=== PATIENT | female | born 1970 | race Caucasian/White ===

== ENCOUNTER 2016-07-23 22:38 | Observation (INO) | payer MEDICAID, OTHER ==
[~2016-07-23] VITALS: Ht 157.5 cm; Wt 105.0 kg
[2016-07-23 22:49] VITALS: BP 133/80; PULSE 79; RESP 18; TEMP 98.1; O2SAT 96
--- NOTE | 2016-07-23 23:20 | PD ---
HPI Chief Complaint: Chest Pain Time Seen by Provider: 23:07 Travel History International Travel<30 days: No Contact w/Intl Traveler<30days: No Traveled to known affect area: No History of Present Illness HPI This is a 45-year-old female who presents to the emergency department with 1 day of chest discomfort described as in the center of her chest, radiating to the back, moderate severity, worse with exertion, improved with rest. She says that over the past week she's had some increasing shortness of breath particularly with exertion and she's noticed that her legs are more swollen than normal. She is otherwise quite healthy. She used to be on hydrochlorothiazide for blood pressure but her blood pressure control improved so she was taken off of it. She's never smoked. She says her father had a heart attack in his early 40s or late 50s. She denies any recent long trips. PFSH Past Medical History Medical History: Denies Significant Hx Tetanus Vaccination: Unknown Influenza Vaccination: No ?: Not Past Surgical History Section: Yes Eye Surgery: Yes (left eye) Gynecologic Surgery: Yes (oophoretomy x1) Hysterectomy: Yes Social History Alcohol Use: No Tobacco Use: No Substance Use: No Allergies-Medications (Allergen,Severity, Reaction): Coded Allergies: No Known Allergies (Unverified , 07/23/16) Reported Meds & Prescriptions Reported Meds & Active Scripts Active No Active Prescriptions or Reported Medications Review of Systems Except as stated in HPI: all other systems reviewed are Neg Physical Exam Narrative GENERAL:Well appearing, no acute distress SKIN: Several abrasions and an open blister on the right dorsal aspect of the foot with some surrounding warmth and erythema. HEAD: Atraumatic. Normocephalic. EYES: Pupils equal and round. No injection or drainage. ENT: Moist mucous membranes NECK: Trachea midline. CARDIOVASCULAR: Regular rate and rhythm. No murmur appreciated. Nonpitting edema of the bilateral lower extremities right greater than left RESPIRATORY: Clear to auscultation. Breath sounds equal bilaterally. GASTROINTESTINAL: Abdomen soft, non-tender, nondistended. MUSCULOSKELETAL: No obvious deformities. NEUROLOGICAL: Awake and alert. No obvious cranial nerve deficits. Moving all extremities. PSYCHIATRIC: Appropriate mood and affect; insight and judgment normal. Data Data Last Documented VS Vital Signs Date Time Temp Pulse Resp B/P Pulse Ox O2 Delivery O2 Flow Rate FiO2 07/23/16 23:31 81 16 133/60 98 Room Air 07/23/16 22:49 98.1 Orders Electrocardiogram (07/23/16 23:16) B-Type Natriuretic Peptide (07/23/16 23:16) Complete Blood Count With Diff (07/23/16 23:16) Comprehensive Metabolic Panel (07/23/16 23:16) Magnesium (Mg) (07/23/16 23:16) Prothrombin Time / Inr (Pt) (07/23/16 23:16) Act Partial Throm Time (Ptt) (07/23/16 23:16) Troponin I (07/23/16 23:16) Chest, Single Ap (07/23/16 23:16) Ecg Monitoring (07/23/16 23:16) Bilateral Bp Monitoring (07/23/16 23:16) Iv Access Insert/Monitor (07/23/16 23:16) Oximetry (07/23/16 23:16) Oxygen Administration (07/23/16 23:16) Aspirin Chew (Aspirin Chew) (07/23/16 23:30) Sodium Chloride 0.9% Flush (Ns Flush) (07/23/16 23:30) Us Leg Venous Doppler (07/23/16 ) Cephalexin (Keflex) (07/24/16 00:45) Admit Order (Ed Use Only) (07/24/16 00:34) Labs Laboratory Tests Test 07/23/16 23:22 White Blood Count 12.3 TH/MM3 Red Blood Count 3.94 MIL/MM3 Hemoglobin 11.7 GM/DL Hematocrit 36.3 % Mean Corpuscular Volume 92.2 FL Mean Corpuscular Hemoglobin 29.6 PG Mean Corpuscular Hemoglobin 32.1 % Concent Red Cell Distribution Width 13.3 % Platelet Count 272 TH/MM3 Mean Platelet Volume 8.9 FL Neutrophils (%) (Auto) 63.3 % Lymphocytes (%) (Auto) 23.7 % Monocytes (%) (Auto) 9.5 % Eosinophils (%) (Auto) 2.9 % Basophils (%) (Auto) 0.6 % Neutrophils # (Auto) 7.8 TH/MM3 Lymphocytes # (Auto) 2.9 TH/MM3 Monocytes # (Auto) 1.2 TH/MM3 Eosinophils # (Auto) 0.4 TH/MM3 Basophils # (Auto) 0.1 TH/MM3 CBC Comment DIFF FINAL Differential Comment Prothrombin Time 10.7 SEC Prothromb Time International 1.0 RATIO Ratio Activated Partial 26.6 SEC Thromboplast Time Sodium Level 142 MEQ/L Potassium Level 3.6 MEQ/L Chloride Level 108 MEQ/L Carbon Dioxide Level 24.9 MEQ/L Anion Gap 9 MEQ/L Blood Urea Nitrogen 24 MG/DL Creatinine 0.99 MG/DL Estimat Glomerular Filtration 60 ML/MIN Rate Random Glucose 83 MG/DL Calcium Level 8.9 MG/DL Magnesium Level 2.3 MG/DL Total Bilirubin 0.4 MG/DL Aspartate Amino Transf 27 U/L (AST/SGOT) Alanine Aminotransferase 28 U/L (ALT/SGPT) Alkaline Phosphatase 30 U/L Troponin I LESS THAN 0.02 NG/ML B-Type Natriuretic Peptide 3 PG/ML Total Protein 6.7 GM/DL Albumin 3.8 GM/DL [facility] Medical Decision Making Medical Screen Exam Complete: Yes Emergency Medical Condition: Yes Interpretation(s) EKG: Normal sinus rhythm with no ST changes Mild leukocytosis Electrolytes are reassuring Troponin is normal BNP is 3 Ultrasound right lower extremity: No DVT Differential Diagnosis Acute coronary syndrome, congestive heart failure, pulmonary embolism, cellulitis, DVT Narrative Course This is a 45-year-old female who presents to the emergency department with 1 week of shortness of breath on exertion and sternal chest pain that started today. She does have a family history of heart disease and a history of hypertension in the past. She was placed on a monitor and an IV was established. EKG was nonischemic. Labs are obtained which are reassuring including a normal BNP. An ultrasound of her right lower extremity was obtained given she has some increasing swelling. She has some breaks in the skin in the right lower extremity and appears to have a superficial cellulitis which I think is causing some of her swelling. She was started on Keflex. Ultrasound was negative for DVT. Given the patient's family history and history of hypertension and think it's reasonable to obtain serial cardiac enzymes on the patient and have her see cardiology in the morning for possible risk stratification. Diagnosis Primary Impression: Chest pain Qualified Code: R07.9 - Chest pain, unspecified type Admitting Information Admitting Physician Requests: Observation Scripts No Active Prescriptions or Reported Meds Ana Maria Yost MD Jul 23, 2016 23:20
[2016-07-23 23:29] VITALS: BP_SYST 128; BP_SYST 133; BP_DIAS 62; BP_DIAS 67; PULSE 76; PULSE 84; RESP 16; O2SAT 98
[2016-07-23] MEDS ORDERED: ASPIRIN 81 MG CHEW TAB PO ONE (23:30)
[2016-07-23] MEDS ORDERED: SODIUM CHLORIDE 0.9% FLUSH 10 ML FLUSH IVF PRN (23:30)
[2016-07-23 23:31] VITALS: BP 133/60; PULSE 81; RESP 16; O2SAT 98
[2016-07-23 23:41] LABS: AUTOMATED NEUTROPHIL # 7.8 TH/MM3 (1.8-7.7); BASOPHIL # 0.1 TH/MM3 (0-0.2); BASOPHIL % 0.6 % (0.0-2.0); EOSINOPHIL # 0.4 TH/MM3 (0-0.4); EOSINOPHIL % 2.9 % (0.0-4.0); HEMATOCRIT 36.3 % (35.0-46.0); HEMO FLAGS DIFF FINAL; LYMPH % 23.7 % (9.0-44.0); LYMPHOCYTE # 2.9 TH/MM3 (1.0-4.8); MEAN CELL VOLUME 92.2 FL (80.0-100.0); MEAN CORPUSCULAR HEMOGLOBIN 29.6 PG (27.0-34.0); MEAN CORPUSCULAR HGB CONC 32.1 % (32.0-36.0); MONO % 9.5 % (0.0-8.0); NEUT % 63.3 % (16.0-70.0); PLATELET COUNT 272 TH/MM3 (150-450); RED BLOOD COUNT 3.94 MIL/MM3 (4.00-5.30); RED CELL DISTRIBUTION WIDTH 13.3 % (11.6-17.2); WHITE BLOOD COUNT 12.3 TH/MM3 (4.0-11.0)
[2016-07-24] VITALS (7 sets, daily range): BP systolic 113–122; BP diastolic 58–68; PULSE 55–74; RESP 20; TEMP 95.4–97.7; O2SAT 93–100
[2016-07-24 00:06] LABS: ANION GAP 9 MEQ/L (5-15); AST (GOT) 27 U/L (15-37); BICARBONATE 24.9 MEQ/L (21.0-32.0); BLOOD UREA NITROGEN 24 MG/DL (7-18); CHLORIDE 108 MEQ/L (98-107); GLOMERULAR FILTRATION RATE 60 ML/MIN (>89); MAGNESIUM 2.3 MG/DL (1.5-2.5); POTASSIUM 3.6 MEQ/L (3.5-5.1); SODIUM (NA) 142 MEQ/L (136-145)
[2016-07-24 00:08] LABS: APTT (PATIENT) 26.6 SEC (24.3-30.1); PROTHROMBIN TIME - PATIENT 10.7 SEC (9.8-11.6)
--- NOTE | 2016-07-24 00:09 | RADRPT ---
EXAM DATE/TIME: 07/23/2016 23:30 [facility] COMPARISON: No previous studies available for comparison. INDICATIONS : Shortness of breath. MEDICAL HISTORY : None. SURGICAL HISTORY : None. ENCOUNTER: Initial ACUITY: 1 day PAIN SCORE: 0/10 LOCATION: Bilateral chest FINDINGS: The lungs are clear without infiltrate, nodule, or mass. There is no appreciable pleural effusion fo r technique. Heart and mediastinum are unremarkable. CONCLUSION: No acute cardiopulmonary disease. Yolanda Myers MD on July 24, 2016 at 0:07 Board Certified Radiologist. This report was verified electronically.
[2016-07-24 00:11] LABS: ALKALINE PHOSPHATASE 30 U/L (45-117); ALT (GPT) 28 U/L (10-53); TOTAL BILIRUBIN ADULT 0.4 MG/DL (0.2-1.0)
--- NOTE | 2016-07-24 00:25 | RADRPT ---
EXAM DATE/TIME: 07/23/2016 23:58 [facility] COMPARISON: No previous studies available for comparison. INDICATIONS : Right leg swelling. MEDICAL HISTORY : . SURGICAL HISTORY : Hysterectomy. section. Unilateral oophorectomy. Left eye surgery. ENCOUNTER: Initial ACUITY: 1 day PAIN SCORE: 0/10 LOCATION: Right leg. TECHNIQUE: Venous ultrasound of the leg was performed from the inguinal ligament to the proximal calf. Real-buzz e, color Doppler and spectral tracing, compression and augmentation techniques were used. FINDINGS: There is normal compressibility of the deep venous system from the inguinal region to the proximal ca lf. No echogenic clot is seen in the lumen of the common femoral, femoral, popliteal, and posterior tibial veins. There is a normal response of the venous system to proximal and distal augmentation an d respiration. There is diffuse edema in the patient's lower extremity. CONCLUSION: No DVT. Yolanda Myers MD on July 24, 2016 at 0:22 Board Certified Radiologist. This report was verified electronically.
[2016-07-24] MEDS ORDERED: CEPHALEXIN MONOHYDRATE 500 MG CAP PO ONE (00:45)
[2016-07-24] MEDS ORDERED: ASPIRIN 325 MG TAB PO SCH (09:00)
[2016-07-24] MEDS ORDERED: ONDANSETRON HCL 4 MG/2 ML VIAL IV PRN (09:00)
[2016-07-24] MEDS ORDERED: ACETAMINOPHEN 500 MG CPLT PO PRN (09:00)
[2016-07-24] MEDS ORDERED: SODIUM CHLORIDE 0.9% FLUSH 10 ML FLUSH IV FLUSH SCH (09:00)
[2016-07-24] MEDS ORDERED: NITROGLYCERIN 0.4 MG SL 25 TABS/BTL SL PRN (09:00)
--- NOTE | 2016-07-24 09:20 | HHI.HP ---
HPI Primary Care Physician No Primary Care Physician Chief Complaint Chest tightness History of Present Illness 45-year-old female presents to the emergency room for further evaluation of chest pain. Onset of chest pain occurred last evening approximately 10:30 PM. She is from out of town and was walking to her hotel when she developed substernal gradual chest tightness and heaviness. Radiation to her back. Severity 5/10. Duration lasted approximately 8 hours. Taking a deep breath makes pain worse. Movements or palpation to area does not make pain better or worse. No known precipitating factors or relieving factors. Endorses situational stress. Associated symptoms included dizziness, shortness of breath , nausea, diaphoresis, and she noticed some wheezing. No recent illness. Endorses increase bilateral lower leg edema for the past week and 6 episodes of substernal chest discomfort over the past week. Chest discomfort episodes last minutes, is nonexertional but similar to the chest discomfort that brought her to the emergency room last evening. She has never had formal cardiac workup. Review of Systems General: No fatigue,weakness, fever, chills, recent illness, or change in appetite. HEENT: No GONZALEZ, no vision changes, no nasal congestion or drainage, no dysphasia CV: As stated above. No current chest pain or pressure. No palpitations, intermittent leg pain, or dizziness RESP: Wheezing with mild shortness of breath yesterday during chest pain episode , no current SOB or wheezing. No recent URI or coughing. GI: No nausea, vomiting, bowel changes, diarrhea, constipation, pain, distention. No unintentional weight gain or weight loss. : No dysuria, urgency, frequency, hematuria. Concentrated urine over the past week, states she is drinking plenty of fluids. EXT: Increase bilateral lower leg edema x1 week, no paraesthesias MS: No discomfort or change in ROM NEURO: No change in memory, dizziness, difficulty with balance, LOC, motor/ sensory deficits PSYCH: No anxiety or depression. Situational stress. SKIN: Multiple "bug bites that itch." States her lower leg edema started shortly after insect bites. Concerning lesion on right anterior foot. States area "started out as a bug bite and I scratched area alot and now it is a scab. " No rashes. Past Family Social History Allergies: Coded Allergies: No Known Allergies (Unverified , 07/23/16) Past Medical History Hypertensionprimary care physician stopped BP for "years ago as my blood pressure was controlled." Past Surgical History Hysterectomy, C-sections, 2 left eye surgeries Reported Medications Reported Meds & Active Scripts Active No Active Prescriptions or Reported Medications No supplements, vitamins, or herbals. Active Ordered Medications Current Medications Medications (Trade) Dose Ordered Sig/Diamond Route Start Time Stop Time Status Last Admin (Tylenol) 500 mg Q4H PRN PO 07/24/16 09:00 (Zofran Inj) 4 mg Q6H PRN IV 07/24/16 09:00 (Nitrostat Sl) 0.4 mg Q5M PRN SL 07/24/16 09:00 (Aspirin) 325 mg DAILY PO 07/24/16 09:00 Family History Father cardiac stent placed in his late 40s. Mother and siblings hypertension. Social History Single, visiting from out of town, plans to move to [facility]. Quit smoking 2009. Smoked one pack cigarettes for 20 years prior to quitting. Denies any alcohol or illegal drug use. No known diabetes, hyperlipidemia, or current hypertension. Physical Exam Vital Signs Vital Signs Date Time Temp Pulse Resp B/P Pulse Ox O2 Delivery O2 Flow Rate FiO2 07/24/16 04:27 55 07/24/16 04:22 97.7 56 20 116/68 99 07/24/16 01:56 93 07/23/16 23:31 81 16 133/60 98 Room Air 07/23/16 23:30 98 Room Air 07/23/16 23:29 76 16 128/67 98 Room Air 133/62 07/23/16 22:55 99 Room Air 07/23/16 22:49 98.1 79 18 133/80 96 Physical Exam GENERAL: Alert WN, WD, NAD, pleasant, obese female. HEAD: NC, AT EYES: Sclera clear, conjunctiva without injection, pupils equal and round ENT: Mucous membranes pink and moist NECK: Supple, no masses, trachea midline CV: RRR, without murmur, rub, gallop, no JVD, S1-S2 no S3-S4. No carotid bruits. RESP: Clear lungs throughout bilateral, no crackles, wheeze, rhonchi, symmetrical chest rise, nonlabored, able to speak in full sentences ABD: Soft, NT, ND, obese no masses, positive bowel tones EXT: Pulses +24, +2 pitting edema bilateral calves and ankles MS: Normal tone 4 extremities, nontender, no obvious deformities, full range of motion, chest wall nontender upon palpation. NEURO: CN II through CN XII grossly intact, motor strength 5/5, gait WNL PSYCH: A+O 3, pleasant affect, appropriate speech, appropriate mood and affect , insight and judgment SKIN: Bilateral lower extremities multiple edematous, erythema areas. Normal turgor, normal texture, no rashes, brisk cap refill, even hair distribution Laboratory Laboratory Tests Test 07/23/16 07/24/16 07/24/16 23:22 03:40 06:00 White Blood Count 12.3 Red Blood Count 3.94 Hemoglobin 11.7 Hematocrit 36.3 Mean Corpuscular Volume 92.2 Mean Corpuscular Hemoglobin 29.6 Mean Corpuscular Hemoglobin 32.1 Concent Red Cell Distribution Width 13.3 Platelet Count 272 Mean Platelet Volume 8.9 Neutrophils (%) (Auto) 63.3 Lymphocytes (%) (Auto) 23.7 Monocytes (%) (Auto) 9.5 Eosinophils (%) (Auto) 2.9 Basophils (%) (Auto) 0.6 Neutrophils # (Auto) 7.8 Lymphocytes # (Auto) 2.9 Monocytes # (Auto) 1.2 Eosinophils # (Auto) 0.4 Basophils # (Auto) 0.1 CBC Comment DIFF FINAL Differential Comment Prothrombin Time 10.7 Prothromb Time International 1.0 Ratio Activated Partial 26.6 Thromboplast Time Sodium Level 142 Potassium Level 3.6 Chloride Level 108 Carbon Dioxide Level 24.9 Anion Gap 9 Blood Urea Nitrogen 24 Creatinine 0.99 Estimat Glomerular Filtration 60 Rate Random Glucose 83 Calcium Level 8.9 Magnesium Level 2.3 Total Bilirubin 0.4 Aspartate Amino Transf 27 (AST/SGOT) Alanine Aminotransferase 28 (ALT/SGPT) Alkaline Phosphatase 30 Troponin I LESS THAN 0.02 LESS THAN 0.02 LESS THAN 0.02 B-Type Natriuretic Peptide 3 Total Protein 6.7 Albumin 3.8 Result Diagram: 07/23/16232107/23/162321 Imaging Last Impressions Chest X-Ray 07/23/166 Signed Impressions: Service Date/Time: July 23:30 - CONCLUSION: No acute cardiopulmonary disease. Yolanda Myers MD Lower Extremity Ultrasound 07/23/16 0000 Signed Impressions: Service Date/Time: July 23:58 - CONCLUSION: No DVT. K. Juan Myers MD Course EKGs 3 EKG showed normal sinus bradycardia and normal sinus rhythm with no ST or T- segment changes. Assessment and Plan Assessment and Plan #1 Chest painadmitted to chest pain center. Ruled out with 3 sets of EKGs, cardiac enzymes, and monitored overnight. Evaluated by Dr. Navjot Evans. Complete a chemical stress test at this time as patient is unable to walk the treadmill. Chest pain most likely musculoskeletal. Further disposition to follow. #2 Venous insufficiency-HCTZ 25mg daily prescription provided, instructed to switch to every other day if swelling improves. Encouraged to find a PCP and use compression stockings. #3 Musculoskeletal pain-warm heating pad to area. Instructed to take over the counter Aleve 2 tablets, twice daily with food for 2 days. Lary Hannah Jul 24, 2016 09:20
[2016-07-24] MEDS ORDERED: REGADENOSON INJ 0.4 MG/5 ML SYR ONE (11:07)
--- NOTE | 2016-07-24 12:15 | RADRPT ---
EXAM DATE/TIME: 07/24/2016 10:29 [facility] COMPARISON: No previous studies available for comparison. INDICATIONS : Substernal chest pain radiating the back. Angina. DOSE: 35 mCi Tc99m Myoview at stress. 11 mCi Tc99m Myoview at rest. 0.4 mg Lexiscan STRESS SYMPTOMS: Nausea, chest pain and dyspnea. EJECTION FRACTION: 65% MEDICAL HISTORY : None SURGICAL HISTORY : Hysterectomy. section. Oophorectomy. ENCOUNTER: Initial ACUITY: 1 day PAIN SCALE: 2/10 LOCATION: Substernal chest TECHNIQUE: The patient underwent pharmacologic stress with infusion of prescribed dose. Continuous ECG tracing was monitored during stress. Gated SPECT imaging was performed after stress and conventional SPECT i maging was performed at rest. The examination was performed on a SPECT/CT scanner, both attenuation and non-corrected datasets were reviewed. FINDINGS: DISTRIBUTION: The maximum perfused segment at stress is in the posterobasal wall. PERFUSION STUDY: The pattern of perfusion at stress is within normal limits. GATED STUDY: There is intact wall motion and thickening without hypokinetic or dyskinetic segments. CONCLUSION: Normal examination. RISK CATEGORY: Low (<1% Annual Mortality Rate) Krishan Rendon MD on July 24, 2016 at 12:11 Board Certified Radiologist. This report was verified electronically.
[2016-07-24] MEDS ORDERED: HYDR25TA5 PO (12:31)
--- NOTE | 2016-07-24 12:32 | HHI.DCPOC ---
Discharge Care Plan Diagnosis: (1) Chest wall pain (2) Venous insufficiency of both lower extremities Goals to Promote Your Health * To prevent worsening of your condition and complications * To maintain your health at the optimal level Directions to Meet Your Goals Take your medications as prescribed Follow your dietary instruction Follow activity as directed Keep your appointments as scheduled Take your immunizations and boosters as scheduled If your symptoms worsen call your PCP, if no PCP go to Urgent Care Center or Emergency Room Smoking is Dangerous to Your Health. Avoid second hand smoke Call the 24-hour hour crisis hotline for domestic abuse at Lary Hannah Jul 24, 2016 12:32
--- NOTE | 2016-07-24 15:12 | TR ---
Date Performed: 07/24/2016 Time Performed: 11:04:54 DOCTOR: Navjot Evans DRUG LIST: CLINICAL HISTORY: CHEST PAIN REASON FOR TEST: CHEST PAIN REASON FOR ENDING: OBSERVATION: CONCLUSION: Lexiscan stress test was performed under standard four minute protocol. Radionuclid e was injected one minute prior to ending the test. No electrocardiographic abormalities were present to suggest ischemia. Nuclear imaging and interpretation are pending. COMMENTS:
--- NOTE | 2016-07-24 15:21 | EKG ---
Date Performed: 07/24/2016 Time Performed: 03:44:34 PTAGE: 45 years EKG: SINUS BRADYCARDIA POSSIBLE LEFT ATRIAL ENLARGEMENT BORDERLINE ECG PREVIOUS TRACING : 07/23/2016 22.54 Since previous tracing, no significant change noted DOCTOR: Navjot Evans Interpretating Date/Time 07/24/2016 15:20:50
--- NOTE | 2016-07-24 15:22 | EKG ---
Date Performed: 07/23/2016 Time Performed: 22:54:59 PTAGE: 45 years EKG: Sinus rhythm WITH SINUS ARRHYTHMIA POSSIBLE LEFT ATRIAL ENLARGEMENT BORDERLINE ECG NO PREVIOUS TRACING DOCTOR: Navjot Evans Interpretating Date/Time 07/24/2016 15:21:03
--- NOTE | 2016-07-24 15:25 | EKG ---
Date Performed: 07/24/2016 Time Performed: 06:19:48 PTAGE: 45 years EKG: SINUS BRADYCARDIA POSSIBLE LEFT ATRIAL ENLARGEMENT BORDERLINE ECG PREVIOUS TRACING : 07/24/2016 03.44 Since previous tracing, no significant change noted DOCTOR: Navjot Evans Interpretating Date/Time 07/24/2016 15:23:30
== END 2016-07-24 14:20 | disposition home or self-care (01) ==
LOC: NEPE 22:38 → NEDA 07-24 00:36 → NEPFCDU 07-24 02:58
PROVIDERS: ADMIT Internal Medicine Cardiovascular Disease; ATTEND Internal Medicine Cardiovascular Disease
DX: R07.89 Other chest pain (principal); I87.2 Venous insufficiency (chronic) (peripheral); M79.1 Myalgia; I10 Essential (primary) hypertension; Z82.49 Family history of ischemic heart disease and other diseases of the circulatory system; Z87.891 Personal history of nicotine dependence; R06.2 Wheezing; R00.1 Bradycardia, unspecified
CPT/HCPCS: 71010; 78452; 80053; 83735; 83880; 84484; 85025; 85610; 85730; 93005; 93017; 93971; 99285; A9502; G0378; J2785